=== PATIENT | male | born 1935 | race Two or more races ===

== ENCOUNTER 2021-10-27 13:14 | Inpatient (IN) | payer MEDICARE, OTHER ==
[~2021-10-27] VITALS: Ht 180.3 cm; Wt 57.2 kg
--- NOTE | 2021-10-27 13:35 | NUR ---
KAMINI FROM [facility] FOR FAILURE TO THRIVE PT IS NOT EATING WELL PER EMS REPORT SINCE YESTERDAY. PLACED ON BED, AWAKE, RESPONDING TO VERBAL STIMULI, ?DEMENTIA, BEDRIDDEN.
--- NOTE | 2021-10-27 13:40 | NUR ---
AT BED SIDE
[2021-10-27] MEDS ORDERED: IV NS 0.9% 500 ML BAG IV ONE (14:00)
--- NOTE | 2021-10-27 14:00 | NUR ---
BLOOD DRAWN AND SENT TO LAB
[2021-10-27 14:17] LABS: BASOPHILS % (AUTO) 0.1 % (0.0-2.0); HEMATOCRIT 40 % (39-51); HEMOGLOBIN 13.2 g/dL (13.5-17.5); LYMPHOCYTES # (AUTO) 0.5 K/uL (0.8-4.8); LYMPHOCYTES % (AUTO) 5.2 % (20.0-44.0); MEAN CORPUSCULAR HGB CONC 33 g/dl (31.0-36.0); MEAN CORPUSCULAR VOLUME 92 fL (80-96); MONOCYTES # (AUTO) 0.7 K/uL (0.1-1.30); MONOCYTES % (AUTO) 8.5 % (2.0-12.0); NEUTROPHILS # (AUTO) 7.5 K/uL (1.8-8.9); NEUTROPHILS % (AUTO) 86.2 % (43.0-81.0); PLATELET COUNT (AUTO) 186 K/uL (150-450); RED BLOOD CELL COUNT(AUTO) 4.32 MIL/uL (4.5-6.0); WHITE BLOOD COUNT (AUTO) 8.7 K/uL (4.3-11.0)
[2021-10-27 14:30] LABS: CALCIUM, SERUM 9.2 mg/dL (8.5-10.1); CARBON DIOXIDE 28 mmol/L (21-32); CHLORIDE 112 mmol/L (98-107); CREATININE 2.4 mg/dL (0.6-1.3); GLUCOSE 134 mg/dL (74-106); SODIUM SERUM 147 mmol/L (136-145); UREA NITROGEN, BLOOD 63 mg/dL (7-18)
[2021-10-27 14:37] LABS: ALANINE AMINOTRANSFERASE 35 U/L (12-78); ALBUMIN 2.9 g/dL (3.4-5.0); ALKALINE PHOSPHATASE 83 U/L (46-116); ASPARTATE AMINOTRANSFERASE 33 U/L (15-37); BILIRUBIN,DIRECT 0.2 mg/dL (0.0-0.2); BILIRUBIN,TOTAL 0.6 mg/dL (0.2-1.0); TOTAL PROTEIN, SERUM 7.8 g/dL (6.4-8.2)
--- NOTE | 2021-10-27 15:35 | NUR ---
X-RAY TECH AT BED SIDE
[2021-10-27] MEDS ORDERED: CEFTRIAXONE 1GM BAG (ER ONLY) 1 GM/50 ML PIGGYBACK IV ONE (16:30)
--- NOTE | 2021-10-27 16:45 | NUR ---
PATIENT PULLED OUT IV CANULA TWICE- SOFT RESTRAIN APPLIED TO BOTH WRIST ORDERED.
[2021-10-27] MEDS ORDERED: CEFTRIAXONE 1 G in IV D5W 50 ML IV ONE (17:00)
--- NOTE | 2021-10-27 17:21 | NUR ---
urine sample sent to lab
[2021-10-27] MEDS ORDERED: IV NS 0.9% 500 ML IV ONE (17:30)
[2021-10-27] MEDS ORDERED: TAMS-12 PO (17:31)
[2021-10-27] MEDS ORDERED: DONE10TA44 PO (17:31)
[2021-10-27] MEDS ORDERED: CHOL200059 PO (17:31)
[2021-10-27] MEDS ORDERED: DILT-32 PO (17:31)
[2021-10-27] MEDS ORDERED: MAGN400T8 PO (17:31)
[2021-10-27] MEDS ORDERED: MYRBETRIQ PO (17:31)
[2021-10-27] MEDS ORDERED: FINA5TAB11 PO (17:31)
[2021-10-27] MEDS ORDERED: GABA600T12 PO (17:31)
[2021-10-27] MEDS ORDERED: OMEP40CA21 PO (17:31)
[2021-10-27] MEDS ORDERED: ASCO500C17 PO (17:31)
[2021-10-27] MEDS ORDERED: METO-357 PO (17:31)
[2021-10-27] MEDS ORDERED: LACT1CAP25 PO (17:31)
[2021-10-27] MEDS ORDERED: CALC500T88 PO (17:31)
[2021-10-27] MEDS ORDERED: APIX2.5T PO (17:31)
--- NOTE | 2021-10-27 17:41 | NUR ---
MOVE SHEET SUBMITTED.
[2021-10-27 18:24] LABS: BILIRUBIN,URINE NEGATIVE (NEGATIVE); COLOR,URINE YELLOW (YELLOW); LEUKOCYTE ESTERASE ,URINE LARGE (NEGATIVE); NITRITE, URINE POSITIVE (NEGATIVE); PROTEIN,URINE 100 mg/dl (NEGATIVE); UGLUCOSE NEGATIVE (NEGATIVE); UROBILINOGEN,URINE 0.2 EU/dL (0.2)
[2021-10-27 18:46] LABS: RBC,URINE 51-80 /HPF (0-2)
[2021-10-27 18:47] LABS: BACTERIA,URINE 3+ /HPF (None Seen); SQUAMOUS EPITHELIAL CELL,UR 0-2 /HPF (None Seen); WBC,URINE 81-100 /HPF (0-3)
[2021-10-27] MEDS ORDERED: ACETAMINOPHEN ES 500 MG TABLET PO ONE (19:00)
--- NOTE | 2021-10-27 19:29 | NUR ---
COVID SWAB DONE AND SENT TO LAB
--- NOTE | 2021-10-27 19:40 | NUR ---
SWAB FOR COVID19 SENT TO LAB
--- NOTE | 2021-10-27 19:46 | NUR ---
EPIC CALLED HORIZONTAL [employer] [employer] OPERATOR PAGED
--- NOTE | 2021-10-27 19:46 | NUR ---
RECEIVED REPORT FROM AMBERLY KHALIL FOR [facility]Y
[2021-10-27] MEDS ORDERED: ACETAMINOPHEN ES 500 MG TABLET ONE (19:57)
--- NOTE | 2021-10-27 20:09 | NUR ---
PT IS CONFUSED AAOX0, RESTING IN BED. WILL CONTINUE TO MONITOR.
--- NOTE | 2021-10-27 21:39 | NUR ---
ROOM 107 MS
--- NOTE | 2021-10-27 21:54 | NUR ---
REPORT GIVEN TO ABDI KHALIL FOR WILLY
--- NOTE | 2021-10-27 22:20 | NUR ---
RN OPENING NOTE RECEIVED PT FROM ER NURSE FITO DASILVA. PT IS A/O X 0. PT A LITTLE CONFUSED AND RESTLESS. ON ROOM AIR WITH NO S/SX OF ACUTE DISTRESS NOTED AT THIS TIME. NO SOB AND EVEN, UNLABORED BREATHING NOTED. O2 SAT IS 98%. HR 97 RR 17 BP 129/59. IV ACCESS NOTED AT RIGHT HAND, #20g. PATENT WITH NO SIGNS OF INFILTRATION. PT IS AFEBRILE. SKIN IS INTACT WITH SOME BRUISES NOTED ON HIS LEFT HAND, RIGHT ARM AND FOREARM. SACRAL REDNESS NOTED TOO. KEPT HOB ELEVATED. KEPT PT CLEAN AND DRY. ALL SAFETY MEASURES IN PLACE: BED LOCKED IN LOWEST POSITION. BED ALARM ON. SR UP X3. CALL LIGHT WITHIN REACH. WILL CONTINUE TO MONITOR FOR ANY CHANGES.
[2021-10-27] MEDS ORDERED: hydrALAZINE HCL IV 20 MG VIAL IV PRN (22:30)
[2021-10-27] MEDS ORDERED: ONDANSETRON HCL/PF 4 MG/2 ML VIAL IVP PRN (22:30)
[2021-10-27] MEDS ORDERED: ACETAMINOPHEN 325 MG TABLET PO PRN (22:30)
[2021-10-27] MEDS ORDERED: ALBUTEROL FS 2.5 MG/0.5 ML VIAL.NEB NEB PRN (22:30)
[2021-10-27] MEDS ORDERED: MORPHINE SULFATE INJ 2 MG/ML DISP.SYRIN IV PRN (22:30)
[2021-10-27] MEDS: IV 1/2NS 1000 ML 1,000 ML IV SCH (23:05)
[2021-10-28] MEDS: IPRATROPIUM/ALBUTEROL INHALER IH SCH ×4 (01:30→18:36)
[2021-10-28 04:00] VITALS: BP 137/67
--- NOTE | 2021-10-28 06:29 | NUR ---
RN CLOSING NOTE NO SIGNIFICANT CHANGES AFTER ALL NURSING ASSESSMENTS WERE DONE. PT REMAINED IN BLED, ASLEEP MOST OF THE TIME. ON ROOM AIR, TOLERATING WELL. NO SIGNS OF ACUTE DISTRESS NOR SOB NOTED. O2 SAT IS 100%. IV ACESS NOTED AT RIGHT HAND, #20g, RUNNING 1/2 NS AT 75 CC/HR. SKIN IS INTACT WITH SOME BRUISES NOTED ON HIS LEFT HAND, RIGHT ARM AND FOREARM. SACRAL REDNESS NOTED TOO. KEPT HOB ELEVATED. KEPT PT CLEAN AND DRY. ALL SAFETY MEASURES IN IMPLEMENTED: BED LOCKED IN LOWEST POSITION. BED ALARM ON. SR UP X3. CALL LIGHT WITHIN REACH. WILL ENDORSE TO AM SHIFT M TO MONITOR FOR ANY CHANGES.
[2021-10-28 07:15] LABS: ALANINE AMINOTRANSFERASE 27 U/L (12-78); ALBUMIN 2.6 g/dL (3.4-5.0); ALKALINE PHOSPHATASE 71 U/L (46-116); ASPARTATE AMINOTRANSFERASE 25 U/L (15-37); BILIRUBIN,TOTAL 0.6 mg/dL (0.2-1.0); CALCIUM, SERUM 8.7 mg/dL (8.5-10.1); CARBON DIOXIDE 21 mmol/L (21-32); CHLORIDE 117 mmol/L (98-107); GLUCOSE 115 mg/dL (74-106); MAGNESIUM 2.8 mg/dL (1.8-2.4); POTASSIUM 3.9 mmol/L (3.5-5.1); SODIUM SERUM 150 mmol/L (136-145); TOTAL PROTEIN, SERUM 7.1 g/dL (6.4-8.2); UREA NITROGEN, BLOOD 62 mg/dL (7-18)
[2021-10-28 07:44] LABS: BASOPHILS % (AUTO) 0.3 % (0.0-2.0); EOSINOPHILS % (AUTO) 0.1 % (0.0-6.0); HEMATOCRIT 37 % (39-51); HEMOGLOBIN 12.1 g/dL (13.5-17.5); LYMPHOCYTES # (AUTO) 0.5 K/uL (0.8-4.8); LYMPHOCYTES % (AUTO) 5.4 % (20.0-44.0); MEAN CORPUSCULAR HGB CONC 33 g/dl (31.0-36.0); MEAN CORPUSCULAR VOLUME 94 fL (80-96); MONOCYTES # (AUTO) 0.7 K/uL (0.1-1.30); MONOCYTES % (AUTO) 8.8 % (2.0-12.0); NEUTROPHILS # (AUTO) 7.2 K/uL (1.8-8.9); NEUTROPHILS % (AUTO) 85.4 % (43.0-81.0); PLATELET COUNT (AUTO) 171 K/uL (150-450); WHITE BLOOD COUNT (AUTO) 8.4 K/uL (4.3-11.0)
--- NOTE | 2021-10-28 07:45 | NUR ---
RN OPENING NOTE RECEIVED PATIENT SLEEPING IN BED. OPENS EYES UPON TACTILE STIMULI. ON ROOM AIR WITH NO S/SX OF ACUTE DISTRESS NOTED AT THIS TIME. NO SOB . BREATHING IS EVEN, UNLABORED. O2 SAT IS 98%. IV ACCESS NOTED AT RIGHT AC, #20g. PATENT WITH NO SIGNS OF INFILTRATION RUNNING 1/2 NS AT 74 ML /HR. PT IS AFEBRILE. KEPT HOB ELEVATED. ALL SAFETY MEASURES IN PLACE: BED LOCKED IN LOWEST POSITION. BED ALARM ON. SR UP X3. CALL LIGHT WITHIN REACH. WILL CONTINUE TO MONITOR THE PATIENT.
[2021-10-28] MEDS: PANTOPRAZOLE 40 MG TABLET.DR PO SCH (07:52)
[2021-10-28 08:00] VITALS: BP 130/68
[2021-10-28] MEDS: ASCORBIC ACID 500 MG TABLET PO SCH (08:14)
[2021-10-28] MEDS: ACIDOPHILUS/BULGARICUS 1 EACH TAB.CHEW PO SCH (08:14)
[2021-10-28] MEDS: CHOLECALCIFEROL 1,000 UNIT TABLET (VIT D3) PO SCH (08:14)
[2021-10-28] MEDS: MAGNESIUM OXIDE 400 MG TABLET PO SCH (08:14)
[2021-10-28] MEDS: FINASTERIDE (5 MG) 5 MG TABLET PO SCH (08:14)
[2021-10-28] MEDS: CALCIUM CARBONATE (1250) 500 MG TABLET PO SCH (08:15)
[2021-10-28] MEDS: METOPROLOL SUCCINATE 50 MG TAB.SR.24H PO SCH (08:15)
[2021-10-28] MEDS: DILTIAZEM HCL CD 120 MG PO SCH (08:15)
[2021-10-28] MEDS ORDERED: Medication Not On Formulary EA ([Myrbetriq] 50 MG) PO SCH (09:00)
[2021-10-28] MEDS ORDERED: HEPARIN SODIUM, PORCINE 5000 UNITS/1 ML VIAL SQ SCH (09:00)
[2021-10-28 10:00] VITALS: BP 130/68
[2021-10-28] MEDS: APIXABAN 2.5 MG TABLET PO SCH ×2 (10:01→16:14)
[2021-10-28] MEDS: IV 1/2NS 1000 ML 1,000 ML IV SCH ×2 (11:56→21:30)
[2021-10-28 12:00] VITALS: BP 131/60
[2021-10-28] MEDS: CEFTRIAXONE 1 G in IV D5W 50 ML IV SCH (16:08)
[2021-10-28] MEDS: ENSURE ENLIVE 237 ML LIQUID (VANILLA) PO SCH (17:34)
[2021-10-28 18:11] VITALS: BP 126/63
--- NOTE | 2021-10-28 18:56 | NUR ---
RN CLOSING NOTE PATIENT AWAKE IN BED. ALERT AND ORIENTED TIMES 1, WITH CONFUSION NOTED. REORIENT THE PATIENT. ON ROOM AIR WITH NO S/SX OF ACUTE DISTRESS NOTED AT THIS TIME. NO SOB . BREATHING IS EVEN, UNLABORED. O2 SAT IS 98%. IV ACCESS NOTED AT RIGHT FA, #22g INTACT AND PATENT WITH NO SIGNS OF INFILTRATION RUNNING 1/2 NS AT 75ML /HR. PT IS AFEBRILE. KEPT HOB ELEVATED. ALL DUE MEDS GIVEN ORDERED. ALL SAFETY MEASURES IN PLACE: BED LOCKED IN LOWEST POSITION. BED ALARM ON. SR UP X3. CALL LIGHT WITHIN REACH. WILL ENDORSE FOR WILLY.
[2021-10-28 20:00] VITALS: BP 135/71
--- NOTE | 2021-10-28 20:00 | NUR ---
ms RN OPENING NOTE RECEIVED PTs IN BED AWAKE CONFUSED . AND RESTLESS. ON ROOM AIR WITH NO S/SX OF ACUTE DISTRESS NOTED AT THIS TIME. NO SOB AND EVEN, UNLABORED BREATHING NOTED. O2 SAT 100% IV ACCESS NOTED AT RIGHT FA #22g. PATENT WITH NO SIGNS OF INFILTRATION. KEPT HOB ELEVATED. KEPT PT CLEAN AND DRY. ALL SAFETY MEASURES IN PLACE: BED LOCKED IN LOWEST POSITION. BED ALARM ON. SR UP X3. CALL LIGHT WITHIN REACH. WILL CONTINUE TO MONITOR FOR ANY CHANGES.
--- NOTE | 2021-10-28 22:16 | NUR ---
ms rn notes prs notedpuling ot of iv lines md dr pulido with order bilateral soft wrist restraint order noted and carried out.
[2021-10-28] MEDS: TAMSULOSIN 0.4 MG CAP.SR.24H PO SCH (22:30)
[2021-10-28] MEDS: DONEPEZIL 5 MG TABLET PO SCH (22:30)
[2021-10-28] MEDS: GABAPENTIN 300 MG CAPSULE PO SCH (22:30)
[2021-10-29 04:00] VITALS: BP 138/58
[2021-10-29] MEDS: IPRATROPIUM/ALBUTEROL INHALER IH SCH ×2 (05:39→07:35)
--- NOTE | 2021-10-29 07:29 | NUR ---
ms rnnotes endorse to rn day shift arianna for continuity of care
[2021-10-29] MEDS: ENSURE ENLIVE 237 ML LIQUID (VANILLA) PO SCH ×2 (08:00→18:55)
--- NOTE | 2021-10-29 08:03 | NUR ---
RN NOTE PT RECEIVED ASLEEP IN BED. IN ROOM AIR. NOT IN DISTRESS. COVID PREC. IV ACCESS ON RFA G22 WITH IVF 1/2 NS @ 100/HR. INFUSING WELL. SAFETY MEASURES FOLLOWED. WILL CONTINUE TO MONITOR.
[2021-10-29] MEDS: METOPROLOL SUCCINATE 50 MG TAB.SR.24H PO SCH (09:09)
[2021-10-29] MEDS: ASCORBIC ACID 500 MG TABLET PO SCH (09:09)
[2021-10-29] MEDS: ACIDOPHILUS/BULGARICUS 1 EACH TAB.CHEW PO SCH (09:09)
[2021-10-29] MEDS: MAGNESIUM OXIDE 400 MG TABLET PO SCH (09:09)
[2021-10-29] MEDS: CHOLECALCIFEROL 1,000 UNIT TABLET (VIT D3) PO SCH (09:09)
[2021-10-29] MEDS: FINASTERIDE (5 MG) 5 MG TABLET PO SCH (09:09)
[2021-10-29] MEDS: CALCIUM CARBONATE (1250) 500 MG TABLET PO SCH (09:09)
[2021-10-29] MEDS: DILTIAZEM HCL CD 120 MG PO SCH (09:10)
[2021-10-29] MEDS: APIXABAN 2.5 MG TABLET PO SCH ×2 (09:11→16:54)
[2021-10-29] MEDS: PANTOPRAZOLE 40 MG TABLET.DR PO SCH (09:49)
[2021-10-29] MEDS: IV 1/2NS 1000 ML 1,000 ML IV SCH ×2 (09:52→18:54)
[2021-10-29 11:40] LABS: BASOPHILS % (AUTO) 0.3 % (0.0-2.0); EOSINOPHILS % (AUTO) 0.8 % (0.0-6.0); HEMATOCRIT 37 % (39-51); HEMOGLOBIN 11.5 g/dL (13.5-17.5); LYMPHOCYTES # (AUTO) 0.6 K/uL (0.8-4.8); MEAN CORPUSCULAR HGB CONC 31 g/dl (31.0-36.0); MEAN CORPUSCULAR VOLUME 98 fL (80-96); MONOCYTES # (AUTO) 0.9 K/uL (0.1-1.30); NEUTROPHILS # (AUTO) 6.4 K/uL (1.8-8.9); NEUTROPHILS % (AUTO) 79.9 % (43.0-81.0); PLATELET COUNT (AUTO) 152 K/uL (150-450); RED BLOOD CELL COUNT(AUTO) 3.73 MIL/uL (4.5-6.0)
[2021-10-29 11:48] LABS: CALCIUM, SERUM 8.5 mg/dL (8.5-10.1); CARBON DIOXIDE 21 mmol/L (21-32); CHLORIDE 116 mmol/L (98-107); CREATININE 1.5 mg/dL (0.6-1.3); GLUCOSE 100 mg/dL (74-106); POTASSIUM 4.1 mmol/L (3.5-5.1); SODIUM SERUM 147 mmol/L (136-145); UREA NITROGEN, BLOOD 50 mg/dL (7-18)
[2021-10-29 12:00] VITALS: BP 127/51
[2021-10-29] MEDS: CEFTRIAXONE 1 G in IV D5W 50 ML IV SCH (16:47)
--- NOTE | 2021-10-29 18:45 | NUR ---
RN NOTE PT RESTING IN BED. IN ROOM AIR. NOT IN DISTRESS. COVID PREC. IV ACCESS ON RAC G22 WITH IVF 1/2 NS @ 100/HR. INFUSING WELL. DUE MEDS GIVEN, NEEDS ATTENDED. SAFETY MEASURES FOLLOWED. WILL CONTINUE TO MONITOR.
[2021-10-29 20:00] VITALS: BP 108/49
--- NOTE | 2021-10-29 20:31 | NUR ---
MS RN Opening Note Pt received in bed awake, A&O x2; pt able to correctly state name and ; calm and cooperative, non-irritable. Pt on RA with O2sat 99%; no s/s of resp distress, no SOB, non-labored and equal breathing; appears comfortable. VSS; will continue to monitor as needed. Pt noted to have bilateral soft wrist restraints with no s/s of impaired circulation nor impaired skin integrity. RFA 22G intact and patent; no s/s of infiltration; noted to have 1/2 NS running at 100 ml/hr. Bed in lowest position, call light within reach, side rails up x3. Will continue to monitor throughout the night.
[2021-10-29] MEDS: GABAPENTIN 300 MG CAPSULE PO SCH (22:30)
[2021-10-29] MEDS: DONEPEZIL 5 MG TABLET PO SCH (22:30)
[2021-10-29] MEDS: TAMSULOSIN 0.4 MG CAP.SR.24H PO SCH (22:30)
[2021-10-30 04:00] VITALS: BP 117/63
--- NOTE | 2021-10-30 06:49 | NUR ---
MS RN Closing Note Pt remains in bed awake, A&O x2; pt awake throughout the whole night. Pt remains on on RA with O2sat ranging from 97%-99% throughout the night; no s/s of resp distress, no SOB, non-labored and equal breathing; appears comfortable. VSS throughout shift with no significant changes. Pt remains on bilateral soft wrist restraints with no s/s of impaired circulation nor impaired skin integrity. Provided pt release of restraints, hygiene, and oral fluids. RFA 22G intact and patent; pt had 1/2 NS running at 100 ml/hr; infusion completed. Bed in lowest position, call light within reach, side rails up x3. Will endorse to dayshift nurse to continue care.
[2021-10-30 06:58] LABS: BASOPHILS % (AUTO) 0.4 % (0.0-2.0); EOSINOPHILS % (AUTO) 1.9 % (0.0-6.0); HEMATOCRIT 33 % (39-51); HEMOGLOBIN 11.2 g/dL (13.5-17.5); LYMPHOCYTES # (AUTO) 0.6 K/uL (0.8-4.8); LYMPHOCYTES % (AUTO) 8.4 % (20.0-44.0); MEAN CORPUSCULAR HGB CONC 34 g/dl (31.0-36.0); MEAN CORPUSCULAR VOLUME 92 fL (80-96); MONOCYTES # (AUTO) 0.7 K/uL (0.1-1.30); MONOCYTES % (AUTO) 9.4 % (2.0-12.0); NEUTROPHILS # (AUTO) 5.8 K/uL (1.8-8.9); NEUTROPHILS % (AUTO) 79.9 % (43.0-81.0); PLATELET COUNT (AUTO) 164 K/uL (150-450); RED BLOOD CELL COUNT(AUTO) 3.63 MIL/uL (4.5-6.0); WHITE BLOOD COUNT (AUTO) 7.3 K/uL (4.3-11.0)
[2021-10-30 07:14] LABS: CALCIUM, SERUM 8.6 mg/dL (8.5-10.1); CARBON DIOXIDE 25 mmol/L (21-32); CHLORIDE 115 mmol/L (98-107); CREATININE 1.4 mg/dL (0.6-1.3); GLUCOSE 107 mg/dL (74-106); POTASSIUM 3.8 mmol/L (3.5-5.1); SODIUM SERUM 147 mmol/L (136-145); UREA NITROGEN, BLOOD 42 mg/dL (7-18)
[2021-10-30] MEDS: IPRATROPIUM/ALBUTEROL INHALER IH SCH ×3 (07:35→19:30)
[2021-10-30] MEDS: FINASTERIDE (5 MG) 5 MG TABLET PO SCH (09:07)
[2021-10-30] MEDS: CALCIUM CARBONATE (1250) 500 MG TABLET PO SCH (09:07)
[2021-10-30] MEDS: MAGNESIUM OXIDE 400 MG TABLET PO SCH (09:07)
[2021-10-30] MEDS: ACIDOPHILUS/BULGARICUS 1 EACH TAB.CHEW PO SCH (09:08)
[2021-10-30] MEDS: ASCORBIC ACID 500 MG TABLET PO SCH (09:08)
[2021-10-30] MEDS: CHOLECALCIFEROL 1,000 UNIT TABLET (VIT D3) PO SCH (09:08)
[2021-10-30] MEDS: METOPROLOL SUCCINATE 50 MG TAB.SR.24H PO SCH (09:08)
[2021-10-30] MEDS: APIXABAN 2.5 MG TABLET PO SCH ×2 (09:10→16:28)
[2021-10-30] MEDS: DILTIAZEM HCL CD 120 MG PO SCH (09:11)
[2021-10-30] MEDS: PANTOPRAZOLE 40 MG TABLET.DR PO SCH (09:12)
[2021-10-30] MEDS: ENSURE ENLIVE 237 ML LIQUID (VANILLA) PO SCH ×2 (09:39→17:30)
[2021-10-30] MEDS: MEROPENEM 500 MG in IV NS 0.9% 100 ML IV SCH ×2 (09:59→22:35)
--- NOTE | 2021-10-30 11:14 | NUR ---
RN NOTE PT RECEIVED ASLEEP IN BED. IN ROOM AIR. NOT IN DISTRESS. COVID PREC. IV ACCESS ON RAC G22 IN PLACE AND PATENT. SAFETY MEASURES FOLLOWED. WILL CONTINUE TO MONITOR.
[2021-10-30 12:00] VITALS: BP 116/58
--- NOTE | 2021-10-30 19:14 | NUR ---
RN NOTE PT RESTING IN BED. IN ROOM AIR. NOT IN DISTRESS. COVID PREC. IV ACCESS ON RAC G22 WITH NO IVF RUNNING, PATENT AND FLUSHING WELL. DUE MEDS GIVEN, NEEDS ATTENDED. SAFETY MEASURES FOLLOWED. WILL CONTINUE TO MONITOR. STARTED ON IV MEROPENEM, NO ADVERSE REACTIONS NOTED. WILL CONTINUE TO MONITOR. WILL ENDROSE TO NEXT RN.
[2021-10-30 20:00] VITALS: BP 125/50
--- NOTE | 2021-10-30 20:32 | NUR ---
MS RN Opening Note Pt in bed awake, A&O x2; appears agitated, irritable, and restless with legs over the side rails. Pt repositioned in bed. Pt on RA with O2sat currently at 99%; no s/s of resp distress, no SOB, non-labored and equal breathing. VSS; will continue to monitor as needed. Bilateral soft wrist restraints remains in place with no s/s of impaired circulation nor impaired skin integrity. RFA 22G intact and patent; no s/s of infiltration; currently has no fluids/meds running at the moment. Pt noted to have fallen asleep after being repositioned in bed. Bed in lowest position, call light within reach, side rails up x3. Will continue to monitor throughout the night.
--- NOTE | 2021-10-30 20:56 | NUR ---
RN Note Pt uncooperative and restless, refused to take ipratropium inhalation spray.
[2021-10-30] MEDS: GABAPENTIN 300 MG CAPSULE PO SCH (22:36)
[2021-10-30] MEDS: DONEPEZIL 5 MG TABLET PO SCH (22:36)
[2021-10-30] MEDS: TAMSULOSIN 0.4 MG CAP.SR.24H PO SCH (22:36)
[2021-10-31] MEDS: IPRATROPIUM/ALBUTEROL INHALER IH SCH ×4 (01:30→22:04)
--- NOTE | 2021-10-31 02:15 | NUR ---
RT NOTE PT UNABLE TO COOPERATE WHEN TAKING COMBIVENT MDI. NO RESPIRATORY DISTRESS NOTED. SIMRAN PEDRAZA.
[2021-10-31 04:00] VITALS: BP 128/65
[2021-10-31 06:15] LABS: BASOPHILS % (AUTO) 0.4 % (0.0-2.0); EOSINOPHILS % (AUTO) 2.2 % (0.0-6.0); HEMATOCRIT 35 % (39-51); HEMOGLOBIN 11.7 g/dL (13.5-17.5); LYMPHOCYTES # (AUTO) 0.8 K/uL (0.8-4.8); LYMPHOCYTES % (AUTO) 10.3 % (20.0-44.0); MEAN CORPUSCULAR HGB CONC 33 g/dl (31.0-36.0); MEAN CORPUSCULAR VOLUME 93 fL (80-96); MONOCYTES # (AUTO) 0.8 K/uL (0.1-1.30); MONOCYTES % (AUTO) 9.5 % (2.0-12.0); NEUTROPHILS # (AUTO) 6.2 K/uL (1.8-8.9); NEUTROPHILS % (AUTO) 77.6 % (43.0-81.0); PLATELET COUNT (AUTO) 185 K/uL (150-450); RED BLOOD CELL COUNT(AUTO) 3.79 MIL/uL (4.5-6.0)
[2021-10-31 06:27] LABS: CALCIUM, SERUM 9.2 mg/dL (8.5-10.1); CREATININE 1.3 mg/dL (0.6-1.3); POTASSIUM 4.1 mmol/L (3.5-5.1)
--- NOTE | 2021-10-31 07:14 | NUR ---
MS RN Closing Note Pt in bed awake, A&O x2; pt awake throughout the whole night with periods of agitation and combativeness (kicking, hitting, and yelling). Pt on RA with O2sat ranging from 98%-99%; no s/s of resp distress, no SOB, non-labored and equal breathing; appears comfortable. VSS throughout shift with no significant changes. Pt remains on bilateral soft wrist restraints with no s/s of impaired circulation nor impaired skin integrity. Provided pt release of restraints, hygiene, and oral fluids. RFA 22G intact and patent; infused meropenem at 33.3 ml/hr for 3 hrs. Bed in lowest position, call light within reach, side rails up x3. Will endorse to dayshift nurse to continue care.
--- NOTE | 2021-10-31 07:30 | NUR ---
PT RECEIVED RESTING COMFORTABLY IN BED. NO S/S OR C/O PAIN OR DISTRESS NOTED. SIDE RAILS UP X2, CALL LIGHT LEFT WITHIN REACH. WILL CONTINUE PLAN OF CARE.
[2021-10-31] MEDS: CHOLECALCIFEROL 1,000 UNIT TABLET (VIT D3) PO SCH (09:15)
[2021-10-31] MEDS: CALCIUM CARBONATE (1250) 500 MG TABLET PO SCH (09:16)
[2021-10-31] MEDS: PANTOPRAZOLE 40 MG TABLET.DR PO SCH (09:16)
[2021-10-31] MEDS: ASCORBIC ACID 500 MG TABLET PO SCH (09:16)
[2021-10-31] MEDS: ACIDOPHILUS/BULGARICUS 1 EACH TAB.CHEW PO SCH (09:16)
[2021-10-31] MEDS: MAGNESIUM OXIDE 400 MG TABLET PO SCH (09:16)
[2021-10-31] MEDS: DILTIAZEM HCL CD 120 MG PO SCH (09:16)
[2021-10-31] MEDS: FINASTERIDE (5 MG) 5 MG TABLET PO SCH (09:16)
[2021-10-31] MEDS: METOPROLOL SUCCINATE 50 MG TAB.SR.24H PO SCH (09:17)
[2021-10-31] MEDS: APIXABAN 2.5 MG TABLET PO SCH ×2 (09:26→17:42)
[2021-10-31] MEDS: ENSURE ENLIVE 237 ML LIQUID (VANILLA) PO SCH ×2 (09:43→17:00)
[2021-10-31] MEDS: MEROPENEM 500 MG in IV NS 0.9% 100 ML IV SCH ×2 (09:43→22:04)
[2021-10-31 12:00] VITALS: BP 92/42
--- NOTE | 2021-10-31 19:23 | NUR ---
CHANGE OF SHIFT REPORT PT RESTING COMFORTABLY IN BED. NO S/S OR C/O PAIN OR DISTRESS NOTED. SIDE RAILS UP X2, CALL LIGHT LEFT WITHIN REACH. PT KEPT CLEAN, DRY, AND COMFORTABLE. NO SIGNIFICANT CHANGES SINCE PREVIOUS SHIFT. REPORT GIVEN TO JOHNATHAN KHALIL.
[2021-10-31 20:00] VITALS: BP 130/66
--- NOTE | 2021-10-31 20:00 | NUR ---
MS RN Opening Note Pt in bed awake, A&O x2; appears quiet, calm, and comfortable at the moment. Pt on RA with O2sat currently at 99%; no s/s of resp distress, no SOB, non-labored and equal breathing. VSS; will continue to monitor as needed. Bilateral soft wrist restraints in place, no s/s of impaired circulation nor impaired skin integrity. LFA 22G intact and patent; no s/s of infiltration, flushes easily with no resistance. Bed in lowest position, call light within reach, side rails up x3. Will continue to monitor throughout the night.
[2021-10-31] MEDS: DONEPEZIL 5 MG TABLET PO SCH (22:03)
[2021-10-31] MEDS: GABAPENTIN 300 MG CAPSULE PO SCH (22:03)
[2021-10-31] MEDS: TAMSULOSIN 0.4 MG CAP.SR.24H PO SCH (22:03)
[2021-11-01] MEDS: IPRATROPIUM/ALBUTEROL INHALER IH SCH ×4 (01:51→20:49)
[2021-11-01 04:00] VITALS: BP 108/56
[2021-11-01 06:39] LABS: BASOPHILS # (AUTO) 0.1 K/uL (0.0-0.2); HEMATOCRIT 36 % (39-51); HEMOGLOBIN 11.8 g/dL (13.5-17.5); LYMPHOCYTES # (AUTO) 0.9 K/uL (0.8-4.8); LYMPHOCYTES % (AUTO) 11.7 % (20.0-44.0); MEAN CORPUSCULAR HGB CONC 33 g/dl (31.0-36.0); MEAN CORPUSCULAR VOLUME 92 fL (80-96); MONOCYTES # (AUTO) 0.6 K/uL (0.1-1.30); MONOCYTES % (AUTO) 7.1 % (2.0-12.0); NEUTROPHILS # (AUTO) 6.1 K/uL (1.8-8.9); NEUTROPHILS % (AUTO) 78.2 % (43.0-81.0); PLATELET COUNT (AUTO) 225 K/uL (150-450); RED BLOOD CELL COUNT(AUTO) 3.87 MIL/uL (4.5-6.0); WHITE BLOOD COUNT (AUTO) 7.8 K/uL (4.3-11.0)
--- NOTE | 2021-11-01 06:45 | NUR ---
RN Closing Note Pt remains in bed, A&O x2; slept intermittently throughout the night. Pt noted to have been more quiet and cooperative than previous shift. Pt remains on on RA with O2sat ranging from 99%-100% throughout the night; no s/s of resp distress, no SOB, non-labored and equal breathing; appears comfortable. VSS throughout the night with no significant changes. Pt remains on bilateral soft wrist restraints with no s/s of impaired circulation nor impaired skin integrity. Provided pt release of restraints, hygiene, and oral fluids. LFA 22G intact and patent; currently has no fluids/meds running through it. Infused meropenem at 2200. All due meds given during shift. Bed in lowest position, call light within reach, side rails up x3. Will endorse to dayshift nurse to continue care.
--- NOTE | 2021-11-01 07:28 | NUR ---
RN OPENING NOTE RECEIVED PT ASLEEP IN BED, EASILY AROUSE. A/O X2, REORIENTED PT NEEDED. ON RA, TOLERATING WELL. BREATHING EVEN AND UNLABORED. NOT IN ANY SIGN OF RESPIRATORY DISTRESS. PT NOTED WITH BILATERAL SOFT WRIST RESTRAINTS WITH NO SIGNS OF IMPAIRED CIRCULATION OR IMPAIRED SKIN INTEGRITY NOTED. IV ACCESS IN LFA G #22, INTACT AND PATENT. SAFETY MEASURES IN PLACE: BED IN LOWEST AND LOCKED POSITION, SIDE RAILS UP X3, BED ALARM ON AND CALL LIGHT WITHIN REACH. WILL CONTINUE TO MONITOR PT.
[2021-11-01] MEDS: PANTOPRAZOLE 40 MG TABLET.DR PO SCH ×2 (07:30→08:53)
[2021-11-01 07:58] LABS: CALCIUM, SERUM 8.9 mg/dL (8.5-10.1); CARBON DIOXIDE 25 mmol/L (21-32); CHLORIDE 110 mmol/L (98-107); CREATININE 1.2 mg/dL (0.6-1.3); GLUCOSE 94 mg/dL (74-106); SODIUM SERUM 146 mmol/L (136-145); UREA NITROGEN, BLOOD 34 mg/dL (7-18)
[2021-11-01] MEDS: ASCORBIC ACID 500 MG TABLET PO SCH ×2 (08:53→09:00)
[2021-11-01] MEDS: CALCIUM CARBONATE (1250) 500 MG TABLET PO SCH ×2 (08:53→09:00)
[2021-11-01] MEDS: ENSURE ENLIVE 237 ML LIQUID (VANILLA) PO SCH ×2 (08:53→17:15)
[2021-11-01] MEDS: FINASTERIDE (5 MG) 5 MG TABLET PO SCH ×2 (08:54→09:00)
[2021-11-01] MEDS: ACIDOPHILUS/BULGARICUS 1 EACH TAB.CHEW PO SCH ×2 (08:54→09:00)
[2021-11-01] MEDS: CHOLECALCIFEROL 1,000 UNIT TABLET (VIT D3) PO SCH ×2 (08:54→09:00)
[2021-11-01] MEDS: MAGNESIUM OXIDE 400 MG TABLET PO SCH ×2 (08:54→09:00)
[2021-11-01] MEDS: METOPROLOL SUCCINATE 50 MG TAB.SR.24H PO SCH ×2 (08:55→09:00)
[2021-11-01] MEDS: DILTIAZEM HCL CD 120 MG PO SCH ×2 (08:55→09:00)
[2021-11-01] MEDS: APIXABAN 2.5 MG TABLET PO SCH ×3 (08:57→17:16)
[2021-11-01] MEDS: MEROPENEM 500 MG in IV NS 0.9% 100 ML IV SCH ×2 (09:00→22:44)
--- NOTE | 2021-11-01 09:30 | NUR ---
RN NOTE ALL DUE MEDS SCHEDULED AT 0900 REFUSED. EXPLAINED RISK AND BENEFITS 3 TIMES, STILL STRONGLY REFUSED.
[2021-11-01 12:00] VITALS: BP 103/56
--- NOTE | 2021-11-01 18:33 | NUR ---
RN CLOSING NOTE PT AWAKE IN BED WATCHING TV. A/O X2, REORIENTED PT NEEDED. ON RA, TOLERATING WELL. BREATHING EVEN AND UNLABORED. NOT IN ANY SIGN OF RESPIRATORY DISTRESS. PT NOTED WITH BILATERAL SOFT WRIST RESTRAINTS WITH NO SIGNS OF IMPAIRED CIRCULATION OR IMPAIRED SKIN INTEGRITY NOTED. IV ACCESS IN LFA G #22, INTACT AND PATENT. ALL NEEDS ATTENDED. SAFETY MEASURES IN PLACE: BED IN LOWEST AND LOCKED POSITION, SIDE RAILS UP X3, BED ALARM ON AND CALL LIGHT WITHIN REACH. WILL ENDORSE TO SUPERVISOR CURED MEATS NURSE FOR WILLY.
[2021-11-01 20:00] VITALS: BP 132/59
--- NOTE | 2021-11-01 20:00 | NUR ---
RN NOTE RECEIVED PT IN BED, ALERT, WITH EPISODE OF DISORIENTATION, FOLLOW SOME SIMPLE COMMANDS. NOT IN ANY DISTRESS. TOLERATING ROOM AIR. COVID ISOLATION PRECAUTION. IV ON LFA NOT FLUSHING. NEW IV LINE INSERTED LFA 20G, GOOD BLOOD RETURN. FLUSHES WELL. WILL CONTINUE TO MONITOR.
[2021-11-01] MEDS: DONEPEZIL 5 MG TABLET PO SCH (22:44)
[2021-11-01] MEDS: GABAPENTIN 300 MG CAPSULE PO SCH (22:45)
[2021-11-01] MEDS: TAMSULOSIN 0.4 MG CAP.SR.24H PO SCH (22:45)
[2021-11-02] MEDS: IPRATROPIUM/ALBUTEROL INHALER IH SCH ×4 (02:00→18:41)
[2021-11-02 04:00] VITALS: BP 120/57
[2021-11-02 06:03] LABS: BASOPHILS % (AUTO) 0.4 % (0.0-2.0); EOSINOPHILS % (AUTO) 1.7 % (0.0-6.0); HEMATOCRIT 35 % (39-51); HEMOGLOBIN 11.9 g/dL (13.5-17.5); LYMPHOCYTES # (AUTO) 0.8 K/uL (0.8-4.8); LYMPHOCYTES % (AUTO) 10.5 % (20.0-44.0); MEAN CORPUSCULAR HGB CONC 34 g/dl (31.0-36.0); MEAN CORPUSCULAR VOLUME 92 fL (80-96); MONOCYTES # (AUTO) 0.5 K/uL (0.1-1.30); MONOCYTES % (AUTO) 7.5 % (2.0-12.0); NEUTROPHILS # (AUTO) 5.9 K/uL (1.8-8.9); NEUTROPHILS % (AUTO) 79.9 % (43.0-81.0); PLATELET COUNT (AUTO) 249 K/uL (150-450); RED BLOOD CELL COUNT(AUTO) 3.85 MIL/uL (4.5-6.0); WHITE BLOOD COUNT (AUTO) 7.4 K/uL (4.3-11.0)
[2021-11-02 06:23] LABS: CALCIUM, SERUM 8.9 mg/dL (8.5-10.1); CARBON DIOXIDE 26 mmol/L (21-32); CHLORIDE 111 mmol/L (98-107); CREATININE 1.2 mg/dL (0.6-1.3); GLUCOSE 105 mg/dL (74-106); POTASSIUM 4.2 mmol/L (3.5-5.1); SODIUM SERUM 146 mmol/L (136-145); UREA NITROGEN, BLOOD 37 mg/dL (7-18)
--- NOTE | 2021-11-02 07:38 | NUR ---
RN NOTE PT SLEEPING AROUSES EASILY. NOT IN ANY DISTRESS. TOLERATING RA. NO CHANGES IN LOC NOTED. CONTINUE WITH WRIST RESTRAINTS. IV REMAIN INTACT AND PATENT. ENDORSED TO NEXT SHIFT RN.
--- NOTE | 2021-11-02 07:40 | NUR ---
RN OPENING NOTE PATIENT AWAKE IN BED RESTING, A/O X1. NO S/S OF PAIN NOTED AT THIS TIME. ON ROOM AIR, NO DISTRESS OR SHORTNESS OF BREATH NOTED. IV ACCESS LFA #20G, INTACT, PATENT AND FLUSHING WELL. FALL AND SAFETY MEASURES IN PLACE, BED ALARM ON BED IN LOW AND LOCK POSITION, CALL LIGHT AND TABLE WITHIN EASY REACH, SIDE RAILS UP X2. WILL CONTINUE TO MONITOR.
[2021-11-02 08:00] VITALS: BP 134/57
[2021-11-02] MEDS: FINASTERIDE (5 MG) 5 MG TABLET PO SCH (09:25)
[2021-11-02] MEDS: CALCIUM CARBONATE (1250) 500 MG TABLET PO SCH (09:26)
[2021-11-02] MEDS: ACIDOPHILUS/BULGARICUS 1 EACH TAB.CHEW PO SCH (09:26)
[2021-11-02] MEDS: MAGNESIUM OXIDE 400 MG TABLET PO SCH (09:26)
[2021-11-02] MEDS: PANTOPRAZOLE 40 MG TABLET.DR PO SCH (09:26)
[2021-11-02] MEDS: CHOLECALCIFEROL 1,000 UNIT TABLET (VIT D3) PO SCH (09:26)
[2021-11-02] MEDS: DILTIAZEM HCL CD 120 MG PO SCH (09:27)
[2021-11-02] MEDS: METOPROLOL SUCCINATE 50 MG TAB.SR.24H PO SCH (09:27)
[2021-11-02] MEDS: ASCORBIC ACID 500 MG TABLET PO SCH (09:27)
[2021-11-02] MEDS: APIXABAN 2.5 MG TABLET PO SCH ×2 (09:28→16:11)
[2021-11-02] MEDS: ENSURE ENLIVE 237 ML LIQUID (VANILLA) PO SCH ×2 (09:31→16:10)
[2021-11-02] MEDS: TOLTERODINE 2 MG TABLET PO SCH ×2 (09:31→16:10)
[2021-11-02] MEDS: MEROPENEM 500 MG in IV NS 0.9% 100 ML IV SCH ×2 (09:34→21:08)
[2021-11-02 12:00] VITALS: BP 134/57
[2021-11-02 16:00] VITALS: BP 129/58
--- NOTE | 2021-11-02 18:38 | NUR ---
RN CLOSING NOTE PATIENT AWAKE IN BED RESTING, A/O X1. NO S/S OF PAIN NOTED AT THIS TIME. ON ROOM AIR, NO DISTRESS OR SHORTNESS OF BREATH NOTED. IV ACCESS LFA #20G, INTACT, PATENT AND FLUSHING WELL. ALL SCHEDULE MEDICATIONS ADMINISTERED EXCEPT FOR PATIENT'S 1929 IPRATROPIUM, PATIENT REFUSED. PATIENT WAS TURNED AND REPOSITIONED PER PROTOCOL. FALL AND SAFETY MEASURES IN PLACE, BED ALARM ON BED IN LOW AND LOCK POSITION, CALL LIGHT AND TABLE WITHIN EASY REACH, SIDE RAILS UP X2. WILL ENDORSE TO SHOWROOM EXECUTIVE DIRECTOR.
--- NOTE | 2021-11-02 19:53 | NUR ---
MS RN OPENING NOTE PATIENT AWAKE IN BED RESTING, A/O X1. NO S/S OF PAIN NOTED AT THIS TIME. ON ROOM AIR, NO DISTRESS OR SHORTNESS OF BREATHING NOTED. WITH IV ACCESS LFA #20G, INTACT, PATENT AND FLUSHING WELL. NOTED WITH B SOFT WRIST RESTRAINTS, FALL AND SAFETY MEASURES IN PLACE, CALL LIGHT WITHIN REACH, BED ALARM ON, BED IN LOWEST AND LOCKED POSITION, SIDE RAILS UP X2. WILL CONTINUE TO MONITOR THROUGHOUT THE SHIFT.
[2021-11-02 20:00] VITALS: BP 117/59
[2021-11-02] MEDS: GABAPENTIN 300 MG CAPSULE PO SCH (21:09)
[2021-11-02] MEDS: TAMSULOSIN 0.4 MG CAP.SR.24H PO SCH (21:09)
[2021-11-02] MEDS: DONEPEZIL 5 MG TABLET PO SCH (21:12)
[2021-11-03] MEDS: IPRATROPIUM/ALBUTEROL INHALER IH SCH ×4 (01:30→19:30)
[2021-11-03 04:00] VITALS: BP 106/50
[2021-11-03 06:18] LABS: BASOPHILS % (AUTO) 0.5 % (0.0-2.0); EOSINOPHILS % (AUTO) 1.9 % (0.0-6.0); HEMATOCRIT 35 % (39-51); HEMOGLOBIN 11.7 g/dL (13.5-17.5); LYMPHOCYTES # (AUTO) 0.9 K/uL (0.8-4.8); LYMPHOCYTES % (AUTO) 10.5 % (20.0-44.0); MEAN CORPUSCULAR HGB CONC 34 g/dl (31.0-36.0); MEAN CORPUSCULAR VOLUME 91 fL (80-96); MONOCYTES # (AUTO) 0.6 K/uL (0.1-1.30); MONOCYTES % (AUTO) 7.6 % (2.0-12.0); NEUTROPHILS # (AUTO) 6.7 K/uL (1.8-8.9); NEUTROPHILS % (AUTO) 79.5 % (43.0-81.0); PLATELET COUNT (AUTO) 257 K/uL (150-450); RED BLOOD CELL COUNT(AUTO) 3.83 MIL/uL (4.5-6.0); WHITE BLOOD COUNT (AUTO) 8.4 K/uL (4.3-11.0)
[2021-11-03 06:35] LABS: CALCIUM, SERUM 8.7 mg/dL (8.5-10.1); CARBON DIOXIDE 26 mmol/L (21-32); CHLORIDE 108 mmol/L (98-107); CREATININE 1.2 mg/dL (0.6-1.3); GLUCOSE 105 mg/dL (74-106); POTASSIUM 4.3 mmol/L (3.5-5.1); SODIUM SERUM 142 mmol/L (136-145); UREA NITROGEN, BLOOD 35 mg/dL (7-18)
--- NOTE | 2021-11-03 06:55 | NUR ---
MS RN CLOSING NOTE PATIENT AWAKE IN BED RESTING, A/O X1. NO S/S OF PAIN NOTED AT THIS TIME. ON ROOM AIR, NO DISTRESS OR SHORTNESS OF BREATHING NOTED. WITH IV ACCESS LFA #20G, INTACT, PATENT AND FLUSHING WELL. MAINTAINS ISOLATION PRECAUTION, ALL DUE MEDS GIVEN, KEPT DRY AND CLEAN, CALL LIGHT WITHIN REACH, BED ALARM ON, BED IN LOWEST AND LOCKED POSITION, SIDE RAILS UP X2. WILL ENDORSE TO AM SHIFT NURSE.
--- NOTE | 2021-11-03 08:01 | NUR ---
RN NOTE PT RECEIVED ASLEEP IN BED. IN ROOM AIR. NOT IN DISTRESS. COVID PREC. IV ACCESS ON LAC G20 IN PLACE AND PATENT. SAFETY MEASURES FOLLOWED. WILL CONTINUE TO MONITOR.
[2021-11-03] MEDS: DILTIAZEM HCL CD 120 MG PO SCH (09:00)
[2021-11-03] MEDS: METOPROLOL SUCCINATE 50 MG TAB.SR.24H PO SCH (09:00)
[2021-11-03] MEDS: CHOLECALCIFEROL 1,000 UNIT TABLET (VIT D3) PO SCH (09:08)
[2021-11-03] MEDS: ACIDOPHILUS/BULGARICUS 1 EACH TAB.CHEW PO SCH (09:08)
[2021-11-03] MEDS: ASCORBIC ACID 500 MG TABLET PO SCH (09:09)
[2021-11-03] MEDS: FINASTERIDE (5 MG) 5 MG TABLET PO SCH (09:09)
[2021-11-03] MEDS: CALCIUM CARBONATE (1250) 500 MG TABLET PO SCH (09:09)
[2021-11-03] MEDS: PANTOPRAZOLE 40 MG TABLET.DR PO SCH (09:13)
[2021-11-03] MEDS: MAGNESIUM OXIDE 400 MG TABLET PO SCH (09:13)
[2021-11-03] MEDS: APIXABAN 2.5 MG TABLET PO SCH ×2 (09:14→16:54)
[2021-11-03] MEDS: TOLTERODINE 2 MG TABLET PO SCH ×2 (09:14→16:54)
[2021-11-03] MEDS: ENSURE ENLIVE 237 ML LIQUID (VANILLA) PO SCH ×2 (09:27→17:23)
[2021-11-03] MEDS: MEROPENEM 500 MG in IV NS 0.9% 100 ML IV SCH ×2 (11:24→21:02)
[2021-11-03 12:00] VITALS: BP 103/59
--- NOTE | 2021-11-03 17:21 | NUR ---
RN NOTE PT RESTING IN BED. IN ROOM AIR. NOT IN DISTRESS. COVID PREC. WITH IV ACCESS ON LAC G20 IN PLACE AND PATENT. ALL DUE MEDICATIONS TAKEN. NEEDS ATTENDED. AM/PM CARE DONE. SAFETY MEASURES FOLLOWED. WILL CONTINUE TO MONITOR AND ENDORSE TO NEXT SHIFT RN.
[2021-11-03 20:00] VITALS: BP 123/64
--- NOTE | 2021-11-03 20:00 | NUR ---
MS RN Opening Note Pt received in bed awake, A&O x1-2 ; with confussion . Pt on RA with O2sat 99%;on ms status v/s stable afebrile no s/s of resp distress, no SOB, non-labored and equal breathing; appears comfortable. will continue to monitor as needed. Pt on bilateral soft wrist restraints with no s/s of impaired circulation nor impaired skin integrity. LFA 20G intact and patent; no s/s of infiltration; All due meds given as ordered no ase noted Bed in lowest position, call light within reach, side rails up x3. Will continue to monitor pts throughout the night.
[2021-11-03] MEDS: TAMSULOSIN 0.4 MG CAP.SR.24H PO SCH (21:00)
[2021-11-03] MEDS: DONEPEZIL 5 MG TABLET PO SCH (21:01)
[2021-11-03] MEDS: GABAPENTIN 300 MG CAPSULE PO SCH (21:01)
[2021-11-04] MEDS: IPRATROPIUM/ALBUTEROL INHALER IH SCH ×4 (01:30→20:36)
[2021-11-04 04:00] VITALS: BP 105/65
--- NOTE | 2021-11-04 06:35 | NUR ---
ms rn notes pts remains in bed awake and responsive .bilateral soft wrist restraint maintaint d/t pts attempting to pull out iv , all needs attended too call light within reach ,kept pts clean dry and comfortable will endorse to rn day shift for continuity of care.
[2021-11-04 06:59] LABS: CARBON DIOXIDE 30 mmol/L (21-32); CHLORIDE 107 mmol/L (98-107); CREATININE 1.3 mg/dL (0.6-1.3); GLUCOSE 102 mg/dL (74-106); POTASSIUM 4.5 mmol/L (3.5-5.1); SODIUM SERUM 143 mmol/L (136-145); UREA NITROGEN, BLOOD 39 mg/dL (7-18)
[2021-11-04 07:05] LABS: BASOPHILS % (AUTO) 0.5 % (0.0-2.0); HEMATOCRIT 34 % (39-51); HEMOGLOBIN 11.3 g/dL (13.5-17.5); LYMPHOCYTES # (AUTO) 0.8 K/uL (0.8-4.8); LYMPHOCYTES % (AUTO) 10.9 % (20.0-44.0); MEAN CORPUSCULAR HGB CONC 33 g/dl (31.0-36.0); MEAN CORPUSCULAR VOLUME 92 fL (80-96); MONOCYTES # (AUTO) 0.5 K/uL (0.1-1.30); MONOCYTES % (AUTO) 6.1 % (2.0-12.0); NEUTROPHILS # (AUTO) 6.3 K/uL (1.8-8.9); NEUTROPHILS % (AUTO) 80.5 % (43.0-81.0); PLATELET COUNT (AUTO) 272 K/uL (150-450); RED BLOOD CELL COUNT(AUTO) 3.65 MIL/uL (4.5-6.0); WHITE BLOOD COUNT (AUTO) 7.8 K/uL (4.3-11.0)
--- NOTE | 2021-11-04 07:18 | NUR ---
RN AM NOTE PATIENT IS IN BED , SLEEPING , ON ROOM AIR, PATIENT IS ORIENTED TIMES 1 , ON REGULAR DIET , HAS PERIPHERAL LINE ON LFA 20 G , OPEN , FLUSHED WITH 10 CC OF THE NS, SKIN INTACT ,PATIENT IS ON SOFT RESTRAIN BOTH ARMS, PATIENT IS INCONTINENT IN DIAPER , HIGH RISK FOR PRESSURE SORE , WILL REPOSITION EVERY 2 HR .PATIENT IS COVID POSITIVE .Bed in lowest position, call light within reach, side rails up x3. Will continue to monitor
[2021-11-04] MEDS: PANTOPRAZOLE 40 MG TABLET.DR PO SCH (07:53)
[2021-11-04] MEDS: ENSURE ENLIVE 237 ML LIQUID (VANILLA) PO SCH ×2 (07:54→17:23)
[2021-11-04] MEDS: ACIDOPHILUS/BULGARICUS 1 EACH TAB.CHEW PO SCH (08:39)
[2021-11-04] MEDS: ASCORBIC ACID 500 MG TABLET PO SCH (08:39)
[2021-11-04] MEDS: CALCIUM CARBONATE (1250) 500 MG TABLET PO SCH (08:40)
[2021-11-04] MEDS: FINASTERIDE (5 MG) 5 MG TABLET PO SCH (08:40)
[2021-11-04] MEDS: APIXABAN 2.5 MG TABLET PO SCH ×2 (08:40→16:29)
[2021-11-04] MEDS: CHOLECALCIFEROL 1,000 UNIT TABLET (VIT D3) PO SCH (08:41)
[2021-11-04] MEDS: MAGNESIUM OXIDE 400 MG TABLET PO SCH (08:54)
[2021-11-04] MEDS: TOLTERODINE 2 MG TABLET PO SCH ×2 (08:54→16:27)
[2021-11-04] MEDS: DILTIAZEM HCL CD 120 MG PO SCH (08:59)
[2021-11-04] MEDS: METOPROLOL SUCCINATE 50 MG TAB.SR.24H PO SCH (09:00)
[2021-11-04] MEDS: MEROPENEM 500 MG in IV NS 0.9% 100 ML IV SCH ×2 (09:28→21:34)
[2021-11-04 12:00] VITALS: BP 108/43
--- NOTE | 2021-11-04 18:19 | NUR ---
RN CLOSING NOTE. PATIENT IS ALERT , ORIENTED TIMES 1, RECEIVED ALL THE MEDICATIONS ACCORDING TO THE MD ORDERERS . PATIENT IS AT ROOM AIR , NO SIGNS OF DISTRESS, .PATIENT IS URINE AND BOWEL INCONTINENT, USING DIAPER . REDNESS ON THE SACRUM AREA , USED Z VICKY .PATIENT IS AT HIGH RISK FOR FALLS , HAS AN ORDER FOR SOFT RESTRAIN NEEDED . LFA IV ACCESS 20 GAIR NS RUNNING TKO 10 ML/HR .BED IS AT THE LOWEST POSTION , BED SIDE RAIL ARE UP , BED ALARM ON , CALL LIGHT IS WITHIN REACH .
--- NOTE | 2021-11-04 19:38 | NUR ---
MS RN Opening Note Pt received in bed awake, A&O x1-2 ,confused. Pt on RA with O2sat 98%.on ms status v/s stable afebrile no s/s of resp distress, no SOB, non-labored breathingeven unlabored. appears comfortable. will continue to monitor as needed. Pt on bilateral soft wrist restraints with no s/s of impaired circulation nor impaired skin integrity. LFA 20G intact and patent; no s/s of infiltration; All due meds given as ordered no ase noted Bed in lowest position, call light within reach, side rails up x3. Will continue to monitor pts.
[2021-11-04 20:00] VITALS: BP 111/61
[2021-11-04] MEDS: GABAPENTIN 300 MG CAPSULE PO SCH (21:33)
[2021-11-04] MEDS: DONEPEZIL 5 MG TABLET PO SCH (21:33)
[2021-11-04] MEDS: TAMSULOSIN 0.4 MG CAP.SR.24H PO SCH (21:33)
[2021-11-05] MEDS: IPRATROPIUM/ALBUTEROL INHALER IH SCH ×4 (01:47→19:55)
[2021-11-05 04:00] VITALS: BP 105/55
--- NOTE | 2021-11-05 06:36 | NUR ---
ms rn notes Pts remains in bed awake and responsive .bilateral soft wrist restraint maintain to prevent pulling invasive tubing , all needs attended too call light within reach ,kept pts clean dry and comfortable will endorse to rn day shift for continuity of care.
[2021-11-05 06:54] LABS: BASOPHILS % (AUTO) 0.4 % (0.0-2.0); EOSINOPHILS % (AUTO) 1.3 % (0.0-6.0); HEMATOCRIT 35 % (39-51); HEMOGLOBIN 11.5 g/dL (13.5-17.5); LYMPHOCYTES # (AUTO) 0.8 K/uL (0.8-4.8); LYMPHOCYTES % (AUTO) 8.4 % (20.0-44.0); MEAN CORPUSCULAR HGB CONC 33 g/dl (31.0-36.0); MEAN CORPUSCULAR VOLUME 91 fL (80-96); MONOCYTES # (AUTO) 0.6 K/uL (0.1-1.30); MONOCYTES % (AUTO) 6.2 % (2.0-12.0); NEUTROPHILS % (AUTO) 83.7 % (43.0-81.0); PLATELET COUNT (AUTO) 282 K/uL (150-450); RED BLOOD CELL COUNT(AUTO) 3.83 MIL/uL (4.5-6.0); WHITE BLOOD COUNT (AUTO) 9.6 K/uL (4.3-11.0)
[2021-11-05 07:08] LABS: CALCIUM, SERUM 8.6 mg/dL (8.5-10.1); CREATININE 1.3 mg/dL (0.6-1.3)
--- NOTE | 2021-11-05 07:30 | NUR ---
RN OPENING NOTE PATIENT IS IN BED, ON SEMI-HERNANDEZ'S POSITION, AWAKE ORIENTED X 1. ON ROOM AIR WITH OXYGEN SATURATION AT 98%. WITH LEFT FOREARM GAUGE 20 IV SALINE LOCK INTACT AND PATENT. DENIES PAIN AND NOT IN ANY FORM OF DISTRESS. BED IS LOCKED IN LOWEST POSITION, 3 SIDE RAILS UP, CALL LIGHT WITHIN REACH. WILL CONTINUE TO MONITOR THROUGHOUT SHIFT.
[2021-11-05] MEDS: CHOLECALCIFEROL 1,000 UNIT TABLET (VIT D3) PO SCH (08:29)
[2021-11-05] MEDS: MAGNESIUM OXIDE 400 MG TABLET PO SCH (08:29)
[2021-11-05] MEDS: FINASTERIDE (5 MG) 5 MG TABLET PO SCH (08:30)
[2021-11-05] MEDS: METOPROLOL SUCCINATE 50 MG TAB.SR.24H PO SCH (08:30)
[2021-11-05] MEDS: CALCIUM CARBONATE (1250) 500 MG TABLET PO SCH (08:31)
[2021-11-05] MEDS: TOLTERODINE 2 MG TABLET PO SCH ×2 (08:31→17:27)
[2021-11-05] MEDS: DILTIAZEM HCL CD 120 MG PO SCH (08:31)
[2021-11-05] MEDS: PANTOPRAZOLE 40 MG TABLET.DR PO SCH (08:32)
[2021-11-05] MEDS: ASCORBIC ACID 500 MG TABLET PO SCH (08:32)
[2021-11-05] MEDS: ACIDOPHILUS/BULGARICUS 1 EACH TAB.CHEW PO SCH (08:32)
[2021-11-05] MEDS: APIXABAN 2.5 MG TABLET PO SCH ×2 (08:33→17:29)
[2021-11-05] MEDS: ENSURE ENLIVE 237 ML LIQUID (VANILLA) PO SCH ×2 (08:55→17:25)
[2021-11-05] MEDS: MEROPENEM 500 MG in IV NS 0.9% 100 ML IV SCH (11:16)
[2021-11-05 12:00] VITALS: BP 123/53
--- NOTE | 2021-11-05 19:07 | NUR ---
RN CLOSING NOTE PATIENT REMAINS STABLE THROUGHOUT SHIFT. DENIES PAIN, BUT STILL CONFUSED, a & O X 1.WITH LEFT FOREARM SALINE LOCK INTACT AND PATENT. ALL HOSPITAL PRECAUTIONS IN PLACE. BED IS LOCKED IN LOWEST POSITION, 3 SIDE RAILS UP, CALL LIGHT WITHIN REACH. WILL ENDORSE TO BEEKEEPER FARMER NURSE.
--- NOTE | 2021-11-05 19:10 | NUR ---
RN NOTES RECEIVED REPORT FROM MORNING RN. PATIENT IN BED ASLEEP. NO SOB NO DISTRESS. WITH IV ACCESS AT R UPPER HAND G 22 PATENT FLUSHES WELL. VITAL SIGNS TAKEN AND RECORDED AFEBRILE. ALL SAFETY MEASURES IN PLACE. BED ON LOWEST POSITION AND LOCKED. WILL CLOSELY MONITOR THE PATIENT. PATIENT IS FOR DISCHARGE WILL WAIT FOR THE AMBULANCE.
--- NOTE | 2021-11-05 21:35 | NUR ---
RN NOTE [facility] CAME IN TO [facility] REPAIR PERSON THE PATIENT. PATIENT IN TABLE CONDITION. VITAL SIGNS TAKEN FOLLOWS BP 116/71 HR 96 RR 18 TEMP 98.1. REPORT AND PAPER WORKS GIVEN TO EMT. BELONGING CHECKED AND ACCOUNTED. SAFELY TRANSFER PATIENT TO THE [facility]. LEFT THE UNIT IN STABLE CONDITION.
== END 2021-11-05 21:35 | DRG 871 ==
LOC: ER 13:33 → MEDSG1 21:47
PROVIDERS: ADMIT Internal Medicine
DX: A41.89 Other specified sepsis (principal); U07.1 COVID-19; R53.2 Functional quadriplegia; G92.8 Other toxic encephalopathy; N17.0 Acute kidney failure with tubular necrosis; E43 Unspecified severe protein-calorie malnutrition; N39.0 Urinary tract infection, site not specified; Z16.12 Extended spectrum beta lactamase (ESBL) resistance; E87.0 Hyperosmolality and hypernatremia; R64 Cachexia; D68.59 Other primary thrombophilia; Z68.1 Body mass index [BMI] 19.9 or less, adult; F02.80 Dementia in other diseases classified elsewhere, unspecified severity, without behavioral disturbance, psychotic disturbance, mood disturbance, and anxiety; G30.9 Alzheimer's disease, unspecified; I12.9 Hypertensive chronic kidney disease with stage 1 through stage 4 chronic kidney disease, or unspecified chronic kidney disease; N18.9 Chronic kidney disease, unspecified; R62.7 Adult failure to thrive; Z96.649 Presence of unspecified artificial hip joint; M62.50 Muscle wasting and atrophy, not elsewhere classified, unspecified site; Z79.01 Long term (current) use of anticoagulants; Z79.899 Other long term (current) drug therapy; E86.1 Hypovolemia; E88.09 Other disorders of plasma-protein metabolism, not elsewhere classified; N40.0 Benign prostatic hyperplasia without lower urinary tract symptoms; I48.91 Unspecified atrial fibrillation; E86.0 Dehydration; B96.20 Unspecified Escherichia coli [E. coli] as the cause of diseases classified elsewhere
CPT/HCPCS: 36415; 71045-TC; 76770-TC; 80048-TC; 80053-TC; 80076-TC; 81001; 82962-TC; 83605-TC; 83735-TC; 84100-TC; 84484-TC; 85025-TC; 85378-TC; 85730-TC; 86140-TC; 87040-TC; 87081-TC; 87086-TC; 87186-TC; 94664; 94799-TC; C9803; G0378; J0696; J2185; J3490; J7030; J7040; J7050; J7060